=== PATIENT | female | born 1980 | race Caucasian/White ===

== ENCOUNTER 2023-10-04 17:11 | Emergency (ER) | payer OTHER ==
[~2023-10-04] VITALS: Ht 172.7 cm; Wt 90.7 kg
[2023-10-04 17:51] VITALS: BP 128/82; PULSE 99; RESP 18; TEMP 97.6; O2SAT 100
== END 2023-10-04 19:53 | disposition home or self-care (01) ==
LOC: MED 17:11
DX: R22.41 Localized swelling, mass and lump, right lower limb (principal)
CPT/HCPCS: 73610; 81025; 93971; 99284